=== PATIENT | female | born 1945 | race African-American/Black ===

== ENCOUNTER 2017-03-22 12:31 | Emergency (ER) | payer MEDICARE ==
[~2017-03-22] VITALS: Ht 170.2 cm; Wt 105.0 kg
[~2017-03-22 12:31] MED LIST: DIOVAN80 MG OR
[2017-03-22 13:39] LABS: HEMATOCRIT 29.4 % (37.0-47.0); HEMOGLOBIN 8.5 g/dl (12.0-16.0); IMMATURE GRANULOCYTES 0.6 % (0.0-1.0); MEAN CELL VOLUME 84.5 fL CALC (80.0-100.0); MEAN CORPUSCULAR HGB 24.4 pG CALC (26.0-32.0); MEAN CORPUSCULAR HGB CONC 28.9 g/L CALC (32.0-36.0); NEUT# 2.55 thou/uL (2.00-7.15); RED BLOOD COUNT 3.48 mill/uL (4.20-5.60); RED CELL DISTRI WIDTH 19.2 % (11.5-15.5)
[2017-03-22 13:52] LABS: ALKALINE PHOSPHATASE 97 u/l (38-126); AMYLASE 104 u/l (30-110); ANION GAP 19 (6-22 (CALC)); BILIRUBIN, TOTAL 0.4 mg/dL (0.0-1.4); BUN 15 mg/dL (8-23); BUN/CREATININE RATIO 15 (12-20 (CALC)); CALCIUM 10.1 mg/dL (8.4-10.2); CARBON DIOXIDE 29 mmol/l (22-30); CHLORIDE 101 mmol/l (95-108); GFR 55 ML/MIN (>=60 (CALC)); GFR FOR AFR.AMER. > 60 ML/MIN (>=60 (CALC)); GLUCOSE 103 mg/dL (82-115); LIPASE 98 u/l (23-300); SGOT/AST 34 u/l (9-36); SGPT/ALT 21 u/l (11-66); SODIUM 145 mmol/l (137-146); TOTAL PROTEIN 10.7 g/dL (6.3-8.2)
[2017-03-22 14:03] LABS: MYOGLOBIN 45 ng/mL (0 - 62)
[2017-03-22 14:58] LABS: URINE BILIRUBIN - DIPSTICK NEGATIVE (NEGATIVE); URINE BLOOD DIPSTICK TRACE-INTACT (NEGATIVE); URINE CLARITY CLEAR; URINE COLOR YELLOW; URINE GLUCOSE - DIPSTICK NEGATIVE (NEGATIVE); URINE KETONE NEGATIVE (NEGATIVE); URINE LEUK ESTERASE NEGATIVE (NEGATIVE); URINE NITRITE - DIPSTICK NEGATIVE (Negative); URINE PH 5.5 (4.5-8.0); URINE PROTEIN - DIPSTICK NEGATIVE (NEG-TRACE); URINE SPECIFIC GRAVITY <=1.005; URINE UROBILINOGEN - DIPSTICK 0.2 E.U./dL (0.2)
[2017-03-22] MEDS ORDERED: PERCOCET 5/325M1 TAB PO (16:01)
[2017-03-22] MEDS ORDERED: COLACE100 MG PO (16:01)
[2017-03-22 16:20] VITALS: BP 212/100
[2017-03-22] MEDS ORDERED: FLEXERIL PO (16:21)
[2017-03-22] MEDS ORDERED: AMLODIPINE10 MG PO (16:21)
== END 2017-03-22 16:35 | disposition home or self-care (01) ==
LOC: ED 12:31
PROVIDERS: Emergency Medicine
DX: M54.9 Dorsalgia, unspecified (principal); I10 Essential (primary) hypertension; R10.13 Epigastric pain; R11.0 Nausea
CPT/HCPCS: Q9967

== ENCOUNTER 2017-05-04 09:12 | Inpatient (IN) | payer MEDICARE ==
[~2017-05-04] VITALS: Ht 170.2 cm; Wt 105.0 kg
[2017-05-04 07:39] VITALS: BP 148/78
[~2017-05-04 09:12] MED LIST changes: +AMLODIPINE10 MG PO; +COLACE100 MG PO; +FLEXERIL PO; +PERCOCET 5/325M1 TAB PO
[2017-05-04] MEDS ORDERED: FLEXERIL5 MG PO (09:25)
[2017-05-04] MEDS ORDERED: DEXAMETHASON2 MG PO (09:26)
[2017-05-04] MEDS ORDERED: REVLIMID PO (09:29)
[2017-05-04] MEDS ORDERED: OXYCODONE HCL5 MG PO (09:30)
[2017-05-04] MEDS ORDERED: ZOFRAN4 MG/TAB PO (09:34)
[2017-05-04 10:13] LABS: HEMATOCRIT 28.6 % (37.0-47.0); HEMOGLOBIN 8.9 g/dl (12.0-16.0); IMMATURE GRANULOCYTES 0.8 % (0.0-1.0); MEAN CELL VOLUME 81.3 fL CALC (80.0-100.0); MEAN CORPUSCULAR HGB 25.3 pG CALC (26.0-32.0); MEAN CORPUSCULAR HGB CONC 31.1 g/L CALC (32.0-36.0); NEUT# 6.25 thou/uL (2.00-7.15); RED BLOOD COUNT 3.52 mill/uL (4.20-5.60); RED CELL DISTRI WIDTH 20.6 % (11.5-15.5)
[2017-05-04 10:28] LABS: ALBUMIN 3.9 g/dL (3.2-5.0); ALKALINE PHOSPHATASE 93 u/l (38-126); AMYLASE 95 u/l (30-110); ANION GAP 16 (6-22 (CALC)); BILIRUBIN, TOTAL 1.1 mg/dL (0.0-1.4); BUN 14 mg/dL (8-23); BUN/CREATININE RATIO 16 (12-20 (CALC)); CALCIUM 9.2 mg/dL (8.4-10.2); CARBON DIOXIDE 29 mmol/l (22-30); CHLORIDE 98 mmol/l (95-108); CREATININE 0.9 mg/dL (0.5-1.0); GFR > 60 ML/MIN (>=60 (CALC)); GFR FOR AFR.AMER. > 60 ML/MIN (>=60 (CALC)); GLUCOSE 126 mg/dL (82-115); LIPASE 91 u/l (23-300); SGOT/AST 33 u/l (9-36); SGPT/ALT 27 u/l (11-66); SODIUM 139 mmol/l (137-146)
[2017-05-04 11:46] LABS: URINE BLOOD DIPSTICK LARGE (NEGATIVE); URINE COLOR YELLOW; URINE GLUCOSE - DIPSTICK NEGATIVE (NEGATIVE); URINE KETONE 15 mg/dL (NEGATIVE); URINE NITRITE - DIPSTICK NEGATIVE (Negative); URINE PROTEIN - DIPSTICK 100 mg/dL (NEG-TRACE); URINE SPECIFIC GRAVITY 1.015; URINE UROBILINOGEN - DIPSTICK 0.2 E.U./dL (0.2)
[2017-05-04 11:58] LABS: URINE BILIRUBIN - DIPSTICK SMALL (NEGATIVE); URINE CLARITY CLOUDY; URINE LEUK ESTERASE SMALL (NEGATIVE)
[2017-05-04 11:59] LABS: URINE BACTERIA FEW hpf; URINE RBC TNTC RBC/hpf (0-5); URINE SQUAMOUS EPITHELIAL CELL MANY EPI/hpf (0-FEW)
[2017-05-04 14:53] VITALS: BP 148/66
[2017-05-04 19:39] VITALS: BP 148/78
[2017-05-05 00:35] VITALS: BP 120/56
[2017-05-05 04:07] VITALS: BP 152/77
[2017-05-05 08:58] VITALS: BP 144/61
[2017-05-05 12:22] VITALS: BP 167/69
[2017-05-05 13:26] LABS: URINE BILIRUBIN - DIPSTICK NEGATIVE (NEGATIVE); URINE BLOOD DIPSTICK MODERATE (NEGATIVE); URINE CLARITY CLEAR; URINE COLOR YELLOW; URINE GLUCOSE - DIPSTICK NEGATIVE (NEGATIVE); URINE KETONE NEGATIVE (NEGATIVE); URINE LEUK ESTERASE NEGATIVE (NEGATIVE); URINE NITRITE - DIPSTICK NEGATIVE (Negative); URINE PH 5.5 (4.5-8.0); URINE PROTEIN - DIPSTICK 30 mg/dL (NEG-TRACE); URINE UROBILINOGEN - DIPSTICK 0.2 E.U./dL (0.2)
[2017-05-05 15:00] VITALS: BP 118/62
[2017-05-05 19:41] VITALS: BP 117/69
[2017-05-05 21:23] LABS: URINE RBC 25-50 RBC/hpf (0-5); URINE SQUAMOUS EPITHELIAL CELL FEW EPI/hpf (0-FEW)
[2017-05-06] VITALS (14 sets, daily range): BP systolic 117–174; BP diastolic 59–87
[2017-05-06 05:11] LABS: HEMATOCRIT 25.3 % (37.0-47.0); HEMOGLOBIN 7.4 g/dl (12.0-16.0); IMMATURE GRANULOCYTES 0.7 % (0.0-1.0); MEAN CELL VOLUME 85.5 fL CALC (80.0-100.0); MEAN CORPUSCULAR HGB CONC 29.2 g/L CALC (32.0-36.0); NEUT# 2.39 thou/uL (2.00-7.15); RED BLOOD COUNT 2.96 mill/uL (4.20-5.60); RED CELL DISTRI WIDTH 19.5 % (11.5-15.5)
[2017-05-06 05:17] LABS: CALCIUM 8.1 mg/dL (8.4-10.2); CREATININE 1.1 mg/dL (0.5-1.0)
[2017-05-07 03:05] VITALS: BP 151/75
[2017-05-07 06:49] LABS: HEMATOCRIT 31.1 % (37.0-47.0); HEMOGLOBIN 9.3 g/dl (12.0-16.0); IMMATURE GRANULOCYTES 1.5 % (0.0-1.0); MEAN CELL VOLUME 82.5 fL CALC (80.0-100.0); MEAN CORPUSCULAR HGB 24.7 pG CALC (26.0-32.0); MEAN CORPUSCULAR HGB CONC 29.9 g/L CALC (32.0-36.0); PLATELET COUNT 218 thou/uL (130-400); RED BLOOD COUNT 3.77 mill/uL (4.20-5.60); RED CELL DISTRI WIDTH 19.5 % (11.5-15.5)
[2017-05-07 07:05] LABS: ALBUMIN 2.9 g/dL (3.2-5.0); ALKALINE PHOSPHATASE 131 u/l (38-126); ANION GAP 18 (6-22 (CALC)); BILIRUBIN, TOTAL 0.4 mg/dL (0.0-1.4); BUN 18 mg/dL (8-23); BUN/CREATININE RATIO 21 (12-20 (CALC)); CALCIUM 8.4 mg/dL (8.4-10.2); CARBON DIOXIDE 25 mmol/l (22-30); CHLORIDE 103 mmol/l (95-108); CREATININE 0.8 mg/dL (0.5-1.0); GFR > 60 ML/MIN (>=60 (CALC)); GFR FOR AFR.AMER. > 60 ML/MIN (>=60 (CALC)); GLUCOSE 137 mg/dL (82-115); POTASSIUM 5.1 mmol/l (3.5-5.1); SGOT/AST 30 u/l (9-36); SGPT/ALT 54 u/l (11-66); SODIUM 141 mmol/l (137-146); TOTAL PROTEIN 7.3 g/dL (6.3-8.2)
[2017-05-07 07:14] LABS: BAND 5 % (0-8); MANUAL DIFFERENTIAL YES
[2017-05-07 07:15] LABS: PLATELET ESTIMATE NORMAL
[2017-05-07 08:13] VITALS: BP 156/75
[2017-05-07 11:00] VITALS: BP 139/72
[2017-05-07 15:21] VITALS: BP 162/78
[2017-05-07 19:24] VITALS: BP 153/74
[2017-05-07 23:34] VITALS: BP 141/74
[2017-05-08 03:06] VITALS: BP 161/79
[2017-05-08 06:12] LABS: HEMATOCRIT 31.1 % (37.0-47.0); HEMOGLOBIN 9.4 g/dl (12.0-16.0); IMMATURE GRANULOCYTES 1.5 % (0.0-1.0); MEAN CELL VOLUME 82.3 fL CALC (80.0-100.0); MEAN CORPUSCULAR HGB 24.9 pG CALC (26.0-32.0); MEAN CORPUSCULAR HGB CONC 30.2 g/L CALC (32.0-36.0); NEUT# 3.49 thou/uL (2.00-7.15); RED BLOOD COUNT 3.78 mill/uL (4.20-5.60); RED CELL DISTRI WIDTH 19.5 % (11.5-15.5)
[2017-05-08 06:25] LABS: ALBUMIN 2.9 g/dL (3.2-5.0); ALKALINE PHOSPHATASE 126 u/l (38-126); ANION GAP 19 (6-22 (CALC)); BILIRUBIN, TOTAL 0.3 mg/dL (0.0-1.4); BUN 27 mg/dL (8-23); BUN/CREATININE RATIO 27 (12-20 (CALC)); CALCIUM 8.5 mg/dL (8.4-10.2); CARBON DIOXIDE 25 mmol/l (22-30); CHLORIDE 104 mmol/l (95-108); GFR 54 ML/MIN (>=60 (CALC)); GFR FOR AFR.AMER. > 60 ML/MIN (>=60 (CALC)); GLUCOSE 105 mg/dL (82-115); POTASSIUM 4.8 mmol/l (3.5-5.1); SGOT/AST 38 u/l (9-36); SGPT/ALT 62 u/l (11-66); SODIUM 143 mmol/l (137-146)
[2017-05-08 08:41] VITALS: BP 175/76
[2017-05-08 09:00] VITALS: BP 175/76
== END 2017-05-08 10:54 | disposition home or self-care (01) | DRG 948 ==
LOC: ENPENDDIS → ED 09:12 → ED-I 11:58 → ED 12:31 → MS2 12:32
PROVIDERS: Emergency Medicine; ADMIT Internal Medicine Geriatric Medicine; ATTEND Internal Medicine Geriatric Medicine
PROC: 30233N1 Transfusion of Nonautologous Red Blood Cells into Peripheral Vein, Percutaneous Approach (ICD-10-PCS; principal; 2017-05-06)
PROC: 30233N1 Transfusion of Nonautologous Red Blood Cells into Peripheral Vein, Percutaneous Approach (ICD-10-PCS; 2017-05-06)
DX: G89.3 Neoplasm related pain (acute) (chronic) (principal); C90.00 Multiple myeloma not having achieved remission; D63.0 Anemia in neoplastic disease; I10 Essential (primary) hypertension; M19.90 Unspecified osteoarthritis, unspecified site; F41.9 Anxiety disorder, unspecified; F32.9 Major depressive disorder, single episode, unspecified; Z79.899 Other long term (current) drug therapy
CPT/HCPCS: A9503; P9016; Q9967